=== PATIENT | male | born 1995 | race Two or more races ===

== ENCOUNTER 2018-04-23 19:06 | Emergency (ER) | payer SELFPAY ==
[~2018-04-23] VITALS: Ht 185.4 cm; Wt 95.3 kg
[2018-04-23] MEDS ORDERED: MORPHINE SULFATE 4 MG/ML SYR/VIAL IV ONE (21:15)
[2018-04-23] MEDS ORDERED: ONDANSETRON HCL 4 MG/2 ML VIAL IV ONE (21:15)
[2018-04-23] MEDS ORDERED: HYDROmorphone HCL 2 MG/ML VL IV ONE (22:15)
[2018-04-23] MEDS ORDERED: cefTRIAXone 1GM/50ML D5W 50 ML IV ONE ×2 (22:21→22:30)
[2018-04-23 23:16] VITALS: BP 137/85
== END 2018-04-23 23:24 | disposition short-term general hospital, planned readmission (82) ==
LOC: EDBD 19:06 → ER 19:10
DX: S42.351A Displaced comminuted fracture of shaft of humerus, right arm, initial encounter for closed fracture (principal); V89.2XXA Person injured in unspecified motor-vehicle accident, traffic, initial encounter; Y93.89 Activity, other specified; Y92.488 Other paved roadways as the place of occurrence of the external cause; Y99.8 Other external cause status
CPT/HCPCS: 73060; 96365; 96375; 99285; J0696; J1170; J2270; J2405